=== PATIENT | female | born 1990 ===

== ENCOUNTER 2018-04-11 17:24 | Emergency (ER) | payer BC, OTHER ==
[2018-04-11 17:25] VITALS: BMI 26.4
[2018-04-11 17:44] VITALS: RESP 18; O2SAT 97
[2018-04-11] MEDS ORDERED: Sodium Chloride 0.9% 1,000 ML IV ONE (18:08)
[2018-04-11] MEDS ORDERED: Alum-Mag Hydrox-Simethicone Susp (30 mL) PO STA (18:08)
[2018-04-11] MEDS ORDERED: Pantoprazole 40 mg EC Tab PO ONE (18:18)
[2018-04-11] MEDS ORDERED: Alum-Mag Hydrox-Simethicone Susp (30 mL) ONE (18:18)
[2018-04-11] MEDS ORDERED: Pantoprazole 40 mg EC Tab PO STA (18:20)
[2018-04-11 18:25] LABS: SQUAMOUS EPITHIAL 4 /hpf (0-5); URINE BILIRUBIN NEGATIVE (NEGATIVE); URINE BLOOD NEGATIVE (NEGATIVE); URINE CLARITY Clear (Clear); URINE COLOR Yellow (YELLOW); URINE GLUCOSE (UA) NORMAL (Normal); URINE LEUKOCYTE ESTERASE TRACE Leu/uL (Negative); URINE PROTEIN NEGATIVE (NEGATIVE); URINE UROBILINOGEN NORMAL mg/dL (0.2-1.0)
[2018-04-11 18:26] LABS: HCG,QUALITATIVE URINE NEGATIVE (NEGATIVE)
--- NOTE | 2018-04-11 18:27 | C.PDOC ---
History Of Present Illness 27 y/o female presents to the ER complaining of burping, nausea, vomiting, and crampy/colicky pain throughout abdomen epigastric pain, nausea, and vomiting. Patient had many prior evaluations for vomiting and gastritis in the ER and she has not followed up with GI as of yet. For her diet, she has scant fresh fruits and vegetables, she drinks seltzer water all day. Time Seen by Provider: 04/11/18 18:00 Chief Complaint (Nursing): Abdominal Pain History Per: Patient History/Exam Limitations: no limitations Onset/Duration Of Symptoms: Days Current Symptoms Are (Timing): Still Present Severity: Moderate Past Medical History Reviewed: Historical Data, Nursing Documentation, Vital Signs Vital Signs: Last Vital Signs Temp 98.4 F 04/11/18 18:57 Pulse 61 04/11/18 18:57 Resp 18 04/11/18 18:57 BP 125/80 04/11/18 18:57 Pulse Ox 97 04/11/18 18:57 - Medical History PMH: Gastritis Denies: Anxiety, Bipolar Disorder, Depression, Personality Disorder, Post Traumatic Stress Disorder, Schizophrenia Other Surgeries: Hx of surgeries - [facility] Procedures INJECT/INFUSE ELECTROLYT (12/12/13) INJECT/INFUSE NEC (12/12/13) Family History: States: No Known Family Hx - Social History Hx Tobacco Use: No Hx Alcohol Use: Yes (SOCIAL) Hx Substance Use: Yes (marijuana) - Immunization History Hx Tetanus Toxoid Vaccination: Yes Hx Influenza Vaccination: Yes Hx Pneumococcal Vaccination: No Review Of Systems Except As Marked, All Systems Reviewed And Found Negative. Constitutional: Negative for: Fever, Chills Gastrointestinal: Positive for: Nausea, Vomiting, Abdominal Pain. Negative for : Diarrhea Genitourinary: Negative for: Dysuria, Hematuria Physical Exam - Physical Exam Appears: Non-toxic, No Acute Distress, Other (obese black female) Skin: Normal Color, Warm, Dry Head: Atraumatic, Normacephalic Eye(s): bilateral: Normal Inspection Nose: Normal Oral Mucosa: Moist Neck: Supple Chest: Symmetrical Cardiovascular: Rhythm Regular Respiratory: Normal Breath Sounds, No Rales, No Rhonchi, No Wheezing Gastrointestinal/Abdominal: Normal Exam, Soft, No Tenderness, No Guarding, No Rebound Extremity: Normal ROM Neurological/Psych: Oriented x3, Normal Speech ED Course And Treatment - Laboratory Results Lab Interpretation: Normal (ua neg.) Urine POC: Negative O2 Sat by Pulse Oximetry: 97 (RA) Pulse Ox Interpretation: Normal - Radiology CXR: Interpreted by Me CXR Interpretation: Yes: No Acute Disease - Other Rad abd x 2 X-Ray: Interpreted by Me (+FOS/gas) Medical Decision Making Medical Decision Making: recurrent vomiting/nausea c/w gastritis not on ANY PPI meds pt with recent normal labs declines repeat labs today. LOW susp of sig GI bleeding to provoke symptomatic anemia. Start PPI and maalox and opt f/u Disposition Doctor Will See Patient In The: Office Counseled Patient/Family Regarding: Studies Performed, Diagnosis - Disposition Referrals: Daniel Rasmussen DO [Staff Provider] - Disposition: HOME/ ROUTINE Disposition Time: 18:28 Condition: GOOD Additional Instructions: Protonix 40 mg twice a day (9AM and 9PM) Lowers stomach acid Maalox 30 cc's (one tablespoon) 5x/day for 1 week (between meals) then as needed for GERD/GAStritis symtoms. After 1 month may decrease Protonix to 40 mg at night only: IF symptoms much improved. Have Dr. Rasmussen refer you to GI to consider upper endoscopy. Prescriptions: Pantoprazole Sodium [Protonix] 40 mg PO Q12H #60 ect Instructions: Gastritis, Acid Reflux (Gastroesophageal Reflux Disease), Adult ( DC), Nausea and Vomiting, Adult (DC) Forms: [facility] (Armenian) - Clinical Impression Clinical Impression: Gastritis, Vomiting - Scribe Statement The provider has reviewed the documentation as recorded by the Daquan Rodriguez Provider Attestation: All medical record entries made by the Daquan were at my direction and personally dictated by me. I have reviewed the chart and agree that the record accurately reflects my personal performance of the history, physical exam, medical decision making, and the department course for this patient. I have also personally directed, reviewed, and agree with the discharge instructions and disposition.
[2018-04-11 18:58] VITALS: BP 125/80; PULSE 61; TEMP 98.4
--- NOTE | 2018-04-12 08:51 | RAD ---
Date of service: 04/11/2018 PROCEDURE: Radiographs of the chest and abdomen (obstructive series) HISTORY: Abdominal pain COMPARISON: No prior. TECHNIQUE: AP radiograph of the chest, with upright and supine radiographs of the abdomen. FINDINGS: CHEST: Lungs: The lungs are well inflated and clear. Cardiovascular: Normal size heart. No pulmonary vascular congestion. Pleura: No pleural fluid. No pneumothorax. Other findings: None. ABDOMEN AND PELVIS: Bowel: There is moderate amount of stool in the ascending colon and rectum. The bowel gas pattern is nonobstructive. No evidence of mechanical obstruction. Free air: None. Bones: Unremarkable. Other findings: None. IMPRESSION: Constipation. No evidence of mechanical bowel obstruction. Clear lungs.
== END 2018-04-11 19:01 | disposition home or self-care (01) ==
LOC: C.ER 17:24
DX: K29.70 Gastritis, unspecified, without bleeding (principal); R11.10 Vomiting, unspecified

== ENCOUNTER 2018-07-08 17:33 | Emergency (ER) | payer BC, OTHER ==
[2018-07-08 17:34] VITALS: BMI 28.3
[2018-07-08 17:48] VITALS: BP 122/76; PULSE 85; RESP 18; TEMP 98.7; O2SAT 97
[2018-07-08] MEDS ORDERED: Silver Sulfadiazine 1% Cream (20 gm) TOP STA (18:02)
[2018-07-08] MEDS ORDERED: Tdap Vaccine 0.5 ml Vial (10-64 yrs) IM ONE ×2 (18:02→18:10)
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
[2018-07-08] MEDS ORDERED: Silver Sulfadiazine 1% Cream (20 gm) ONE (18:09)
== END 2018-07-08 18:36 | disposition home or self-care (01) ==
LOC: C.ER 17:33
DX: T24.211A Burn of second degree of right thigh, initial encounter (principal); X15.8XXA Contact with other hot household appliances, initial encounter; Z23 Encounter for immunization

== ENCOUNTER 2018-09-09 09:02 | Emergency (ER) | payer OTHER ==
[2018-09-09 09:02] VITALS: BMI 28.3
--- NOTE | 2018-09-09 11:17 | RAD ---
At school date of service: 09/09/2018 HISTORY: chest pain COMPARISON: No prior. TECHNIQUE: Chest PA and lateral FINDINGS: LUNGS: No active pulmonary disease. PLEURA: No significant pleural effusion identified. No pneumothorax apparent. CARDIOVASCULAR: No aortic atherosclerotic calcification present. Normal cardiac size. No pulmonary vascular congestion. OSSEOUS STRUCTURES: No significant abnormalities. VISUALIZED UPPER ABDOMEN: Normal. OTHER FINDINGS: None. IMPRESSION: No active disease.
--- NOTE | 2018-09-09 12:07 | C.PDOC ---
History Of Present Illness 27 y/o female,with no significant PMhx, presents to the ER complaining of midsternal chest pain which began today. Patient states that she had sudden onset of sharp chest pain. Patient reports that the pain is worse with deep breathing and movement.Denies having fever,chills, SOB, nausea vomiting, diaphoresis, and trauma. Time Seen by Provider: 09/09/18 10:00 Chief Complaint (Nursing): Chest Pain History Per: Patient History/Exam Limitations: no limitations Onset/Duration Of Symptoms: Days Current Symptoms Are (Timing): Still Present Severity: Moderate Quality: Sharp Exacerbating Factors: Movement, Deep Breathing Past Medical History Reviewed: Historical Data, Nursing Documentation, Vital Signs Vital Signs: Last Vital Signs Temp 98.8 F 09/09/18 11:50 Pulse 81 09/09/18 11:50 Resp 18 09/09/18 11:50 BP 102/63 09/09/18 11:50 Pulse Ox 96 09/09/18 11:50 - Medical History PMH: Gastritis Denies: Anxiety, Bipolar Disorder, Depression, Personality Disorder, Post Traumatic Stress Disorder, Schizophrenia Surgical History: Denies: Pacemaker Other Surgeries: Hx of surgeries - [facility] Procedures INJECT/INFUSE ELECTROLYT (12/12/13) INJECT/INFUSE NEC (12/12/13) Family History: States: No Known Family Hx - Social History Hx Tobacco Use: No Hx Alcohol Use: Yes (SOCIAL) Hx Substance Use: Yes - Immunization History Hx Tetanus Toxoid Vaccination: No Hx Influenza Vaccination: Yes Hx Pneumococcal Vaccination: No Review Of Systems Except As Marked, All Systems Reviewed And Found Negative. Constitutional: Negative for: Fever, Chills Cardiovascular: Positive for: Chest Pain Respiratory: Negative for: Shortness of Breath Gastrointestinal: Negative for: Nausea, Vomiting Physical Exam - Physical Exam Appears: Non-toxic, No Acute Distress Skin: Normal Color, Warm, Dry Head: Atraumatic, Normacephalic Eye(s): bilateral: Normal Inspection Nose: Normal Oral Mucosa: Moist Neck: Supple Chest: Symmetrical Cardiovascular: Rhythm Regular Respiratory: Normal Breath Sounds, No Rales, No Rhonchi, No Wheezing Gastrointestinal/Abdominal: No Normal Exam, Soft, No Tenderness, No Guarding, No Rebound Back: Normal Inspection, No Vertebral Tenderness Extremity: Normal ROM Neurological/Psych: Oriented x3, Normal Speech ED Course And Treatment ECG: Interpreted By Me, Viewed By Me ECG Rhythm: Sinus Rhythm Rate From EC O2 Sat by Pulse Oximetry: 96 (RA) Pulse Ox Interpretation: Normal - Radiology CXR: Interpreted by Me, Viewed By Me CXR Interpretation: Yes: No Acute Disease Medical Decision Making Medical Decision Making: Plan: --CXR --D-Dimer --Motrin PO On re-exam, the patient reports improvement of symptoms. Lungs are CTA, heart is RRR, abdomen is soft, non-tender and tolerating PO well. Ambulatory in the ED with steady gait. Follow up with the medical doctor within 1-2 days. return if worsened. Disposition Counseled Patient/Family Regarding: Smoking Cessation (6 minutes) - Disposition Referrals: Daniel Rasmussen DO [Staff Provider] - Disposition: HOME/ ROUTINE Disposition Time: 12:33 Condition: IMPROVED Additional Instructions: Follow up with the medical doctor within 1-2 days. return if worsened. 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 - Scribe Statement The provider has reviewed the documentation as recorded by the Patricaibe Rico Rodriguez Provider Attestation All medical record entries made by the Scribe were at my direction and personally dictated by me. I have reviewed the chart and agree that the record accurately reflects my personal performance of the history, physical exam, medical decision making, and the department course for this patient. I have also personally directed, reviewed, and agree with the discharge instructions and disposition.
[2018-09-09 12:44] VITALS: BP 100/60; PULSE 70; RESP 16; TEMP 98.3
--- NOTE | 2018-09-10 20:39 | CARD ---
APPROVED REPORT Date of service: 09/09/2018 EKG Measurement Heart [id number] ID [id number] <Conclusion> Normal sinus rhythm with sinus arrhythmia Normal ECG
[2018-09-12 11:06] VITALS: O2SAT 96
== END 2018-09-09 13:30 | disposition home or self-care (01) ==
LOC: C.ER 09:02
DX: R07.81 Pleurodynia (principal); R07.89 Other chest pain